=== PATIENT | male | born 1965 | race Caucasian/White ===

== ENCOUNTER 2018-06-20 16:11 | Emergency (ER) | payer MEDICAID, SELFPAY ==
[2018-06-20 16:13] VITALS: BP 147/106; PULSE 80; RESP 16; TEMP 36.7; O2SAT 95; BMI 25.5
[2018-06-20 17:14] LABS: Absolute Lymphocyte Count 2.55 X10^3/ul (0.83-4.51); Absolute Neutrophil Count 5.6 X10^3/uL (2.0-7.7); Basophil# 0.05 X10^3/uL; Basophil% 0.6 % (0-1); Eosinophil# 0.05 X10^3/uL; Eosinophils% 0.6 % (0-5); Hematocrit 45.3 % (40-54); Hemoglobin 15.8 g/dl (13.0-16.5); Lymphocyte # 2.55 X10^3/ul (4.0); Lymphocyte % 29.1 % (19-41); Mean Corp Hgb Conc 34.9 g/gl (32-36); Mean Corpuscular Hgb 30.6 pg (27.0-32.0); Mean Corpuscular Volume 87.8 fL (80-94); Monocyte# 0.48 X10^3/uL; Monocyte% 5.5 % (0-10); Neutrophil # 5.61 X10^3/uL (2.7-7.7); Neutrophil % 63.9 % (47-70); Platelet Count 286 K/mm3 (150-450); RBC Distribution Width CV 13.4 % (11.6-14.6); RBC Distribution Width SD 42.1 fl (35.1-43.9); Red Blood Count 5.16 M/mm3 (4.6-6.2); White Blood Count 8.8 K/mm3 (4.4-11.0)
--- NOTE | 2018-06-20 17:14 | ED.DCSUM_ITS ---
- ER Visit Summary Date of Service: 06/20/18 Chief Complaint: I need detox otherwise I will History of Present Illness: The patient is a 52 M who consumes 10-1216 ounce cans of beer in addition 2-4 cans daily. Last detox 2010. Patient is a smoker of 1.5 packs/day. He denies black or maroon stool. He denies hematemesis. He does report bruising easily. He denies headache, visual, ocular auditory symptoms. He denies cardiac respiratory symptoms. He denies change in color or skin. He states his urine is darker in color. He denies history of hepatitis. He denies being immune suppressed, HIV. Physical Examination: Vital signs noted. Is not tachycardic or tachypneic. Blood pressure is elevated 147/103. Head is atraumatic normocephalic. Pupils are equal round reactive. Extraocular muscles are intact. TMs are pearly white with landmarks noted. Nares patent with no drainage. Posterior pharynx without erythema or exudate. Uvula is midline. There is no dysphonia or dysphasia. Trachea is midline. There is no stridor with auscultation of the neck. Heart is regular without murmur, gallop or rub. S1 and S2 are normal. Lungs are clear to auscultation with good movement of air bilaterally. Abdomen is soft tenderness in the upper abdomen. There is no hepatospleno megaly. There is no CVA tenderness noted. Patient is alert and oriented ?3. Motor is 5 over 5. Sensory is intact. DTRs are symmetric with no clonus or Babinski sign. Cranial 2 through 12 are intact. Cerebellar testing is normal. Test Results: All of patient's test results are pending. Emergency Department Course and Treatment: To evaluate patient will obtain PT/INR to assess liver function since he reports bruising easily. Conference of panel was obtained to assess electrode, CO2, renal function and hepatic enzymes. CBC to evaluate for anemia and thrombocytopenia which would represent bone marrow depression. Alcohol level was obtained as well. Counseling center for detox was paged. I was informed they have left. Treatment Plan: Assess for medical clearance and determine if he would qualify for medical admission. I was informed at 1710 that patient wishes to leave because the nurse would not remove his IV and allow him to go outside and smoke. Patient was told this is a smoke-free campus and that he would need to stay in the emergency room. Patient is of sound mind and has the capacity to refuse treatment. He understands the risks involved. Disposition: AMA Impression: 1. Acute alcohol intoxication 2. Multiple bruises This note was generated with [employer] software. It may contain incorrect words, spelling, and punctuation that were not noted in review of the chart prior to signing ED Disposition - Plan for ED Patient: Disposition: Against Medical Advice Instructions: ED Overdose Alcohol, ED Seizure Alcohol Withdrawal Referrals: Care Physician,No Primary [Primary Care Provider] - [facility] [STAFF PHYSICIAN] - As soon as possible
[2018-06-20 17:17] LABS: POSITIVE COUNT NO; POSITIVE DIFFERENTIAL NO; POSITIVE MORPHOLOGY NO
[2018-06-20 17:22] LABS: AST(SGOT) 25 U/L (15-37); Alanine Aminotransfer ALT/SGPT 33 U/L (16-61); Albumin, Serum 3.9 g/dL (3.2-5.0); Alkaline Phosphatase 85 U/L (45-117); Anion Gap 9 (5-15); BUN 12 mg/dL (7-18); BUN/Creat Ratio 14.5 RATIO (10-20); Calcium,Total 8.7 mg/dL (8.5-10.1); Chloride 108 mmol/L (98-107); Creatinine, Serum 0.82 mg/dL (0.70-1.30); EST Glomerular Filtration Rate 105 mL/min (>60); Est Glom Filt Rate - Afr Amer 127 mL/min (>60); Estimated Creatinine Clearance 107.77 ml/min; Globulin 3.9 g/dL (2.2-4.2); Glucose 111 mg/dL (74-106); Lipase 209 U/L (73-393); Potassium 3.5 mmol/L (3.5-5.1); Protein, Total 7.8 g/dL (6.4-8.2); Sodium Level 143 mmol/L (136-145)
[2018-06-20 17:26] LABS: Prothrombin Time (Protime)PT. 13.1 SECONDS (11.7-14.9)
[2018-06-20 17:39] VITALS: RESP 16
== END 2018-06-20 17:40 | disposition left against medical advice (07) ==
PROVIDERS: Emergency Provider Emergency Medicine
DX: F10.129 Alcohol abuse with intoxication, unspecified (principal); Y90.9 Presence of alcohol in blood, level not specified; R23.3 Spontaneous ecchymoses; F17.200 Nicotine dependence, unspecified, uncomplicated; Z53.21 Procedure and treatment not carried out due to patient leaving prior to being seen by health care provider
CPT/HCPCS: 80053; 80320; 83690; 85025; 85610; 99285; A4216; G0480